=== PATIENT | female | born 1950 | race Caucasian/White ===

== ENCOUNTER → 2021-02-11 | Outpatient (CLI) | payer MEDICARE ==
[~2021-02-11] MED LIST: ASA81BEC PO; BENTYL 10 MG CA10 MG PO; CLARITIN10 M3 PO; FLONASE 0.05%50 MCG NASAL; LISINOPRIL2.5 MG PO; Lopressor PO; NITROSTAT0.4 M1 SUBLING; PROBIOTIC1 EAC7 PO; VITAMIN D325 MC1 PO
--- NOTE | 2021-02-11 14:36 | 2DMMODE ---
[place] [address] 2 D/M-MODE ECHOCARDIOGRAM Name: YARIEL JUAREZ Room: [facility]#: [id number] Admission: 02/11/21 Attend Phys: Francesco Villela, Discharge: Date of : 46 Date of Service: 02/11/21 1435 Report #: [id number] THIS REPORT FOR: cc: Mookie Marie Adam J DO Liston, Michael J. MD [facility] ~ APPROVED REPORT Study performed: 02/11/2021 10:46:06 EXAM: Comprehensive 2D, Doppler, and color-flow Echocardiogram Patient Location: Out-Patient BSA: 1.46 HR: 70 bpm BP: 116/71 mmHg Other Information Study Quality: Good Indications CAD 2D Dimensions IVSd: 8.50 (7-11mm) LVOT Diam: 18.51 (18-24mm) LVDd: 39.80 mm PWd: 8.16 (7-11mm) Ascending Ao: 28.41 (22-36mm) LVDs: 25.68 (25-40mm) Aortic Root: 26.89 mm Volumes Left Atrial Volume (Systole) LA ESV Index: 10.70 mL/m2 Aortic Valve AoV Peak Pineda.: 1.49 m/s AO Peak Gr.: 8.89 mmHg LVOT Max P.42 mmHg AO Mean Gr.: 4.50 mmHg LVOT Mean P.37 mmHg LVOT Max V: 1.16 m/s AO V2 VTI: 28.92 cm LVOT Mean V: 0.70 m/s RAMIREZ (VTI): 2.03 cm2 LVOT V1 VTI: 21.82 cm Mitral Valve E/A Ratio: 1.32 [place] [address] 2 D/M-MODE ECHOCARDIOGRAM Name: YARIEL JUAREZ Room: [facility]#: [id number] Admission: 02/11/21 Attend Phys: Francesco Villela, Discharge: Date of : 46 Date of Service: 02/11/21 1435 Report #: [id number] MV Decel. Time: 207.19 ms MV E Max Pineda.: 0.88 m/s MV PHT: 60.09 ms MVA (PHT): 3.66 cm2 TDI E/Lateral E': 8.80 E/Medial E': 7.33 Medial E' Pineda.: 0.12 m/s Lateral E' Pineda.: 0.10 m/s Pulmonary Valve PV Peak Pineda.: 1.07 m/s PV Peak Gr.: 4.55 mmHg Tricuspid Valve RAP Estimate: 5.00 mmHg TR Peak Gr.: 16.66 mmHg RVSP: 21.66 mmHg PA Pressure: 21.66 mmHg Left Ventricle The left ventricle is normal size. There is normal LV segmental wall motion. There is normal left ventricular wall thickness. Left ventricular systolic function is normal. LVEF is 60-65%. The left ventricular diastolic function is normal. Right Ventricle The right ventricle is normal size. The right ventricular systolic function is normal. Atria The left atrium size is normal. The right atrium size is normal. Aortic Valve Mild aortic valve sclerosis. No aortic regurgitation is present. There is no aortic valvular stenosis. Mitral Valve The mitral valve is normal in structure. Mild mitral regurgitation. No evidence of mitral valve stenosis. Tricuspid Valve The tricuspid valve is normal in structure. Mild tricuspid regurgitation. No pulmonary hypertension. Pulmonic Valve The pulmonary valve is normal [place] [address] 2 D/M-MODE ECHOCARDIOGRAM Name: YARIEL JUAREZ Briseida Room: [facility]#: [id number] Admission: 02/11/21 Attend Phys: Francesco Villela, Discharge: Date of : 46 Date of Service: 02/11/21 1435 Report #: [id number] regurgitation. Great Vessels The aortic root is normal in size. IVC is normal in size and collapses >50% with inspiration. Pericardium There is no pericardial effusion. <Conclusion> The left ventricle is normal size. There is normal left ventricular wall thickness. Left ventricular systolic function is normal. LVEF is 60-65%. The left ventricular diastolic function is normal. There is normal LV segmental wall motion. Mild aortic valve sclerosis. There is no aortic valvular stenosis. Mild mitral regurgitation. Mild tricuspid regurgitation. No pulmonary hypertension. IVC is normal in size and collapses >50% with inspiration. <ELECTRONICALLY SIGNED> By: Francesco Villela MD, FACC 02/11/21 1435 1435 1435 Francesco Villela MD, FACC /INF
--- NOTE | 2021-02-11 15:48 | CARDNUC ---
[place] [address] CARDIAC NUCLEAR IMAGING REPORT Name: YARIEL JUAREZ Room: [facility]#: [id number] Admission: 02/11/21 Attend Phys: Francesco Villela, Discharge: Date of : 46 Date of Service: 02/11/21 1548 Report #: [id number] THIS REPORT FOR: cc: Mookie Marie Adam J DO Liston, Michael J. MD [facility] ~ APPROVED REPORT Imaging Protocol: Stress Tc-99m/Rest Tc-99m 1 day Study performed: 02/11/2021 09:00:00 Indication: Dyspnea Patient Location: Out-Patient Stress Tech: Tanya Lambert Stress Nurse: Cassi Liriano RN Ht: 5 ft 3 in Wt: 103 lbs BSA: 1.46 m2 HR: 57 bpm BP: 116/71 mmHg BMI: 18.24 Medical History Medical History: Increased Dyspnea on exertion, nonrheumatic mitral valve regurgitation, CAD s/p CABG, CAD s/p NV, CAD s/p stent, HTN, Hyperlipidemia, past smoker. significant knee pain/bone on bone, rib pain with wires. Medications: ASA 81, LISINOPRIL, METOPROLOL, NTG Allergies: ATORVASTATION, LATEX, EZETIMIBE, MORPHINE, PITVASTATIN, PRAVASTATIN, ZOLPIDEIM. Cardiac Risk Factors: Age, Hyperlipidemia, HTN, Past Smoker, SOB, FHX of CAD, NONRHEUMATIC MITRAL VALVE REGURGITATION, HX NV, HX CABG, HX PCI. Previous Cardiac Procedures: CABG, Myocardial infarction, PCI, CAD Pretest Chest Pain Characteristics: No chest pain Exercise History: Indeterminate Physical Disabilities: DYSPNEA, FATIGUE, WEAKNESS, KNEE PAIN. Meds Held (24 hrs): Metoprolol, NTG. Resting Data Rest SPECT myocardial perfusion imaging was performed in supine position 30 minutes following the intravenous injection of 10.3 mCi of Tc-99m Sestamibi. Time of rest injection: 09:20 The images were gated to evaluate regional [place] [address] CARDIAC NUCLEAR IMAGING REPORT Name: YARIEL JUAREZ Room: [facility]#: [id number] Admission: 02/11/21 Attend Phys: Francesco Villela, Discharge: Date of : 46 Date of Service: 02/11/21 1548 Report #: [id number] left ventricular ejection fraction. Administration Route: IV Administration Site: Right AC Pharmacologic Stress Pharmacologic stress test was performed by injecting Regadenoson 0.4 mg IV push over 10-15 seconds immediately followed by the intravenous injection of 33.5 mCi of Tc-99m Sestamibi. Time of stress injection: 10:55 Administration Route: IV Administration Site: Right AC Heart Rate at time of stress injection: 109 bpm. Gated Stress SPECT was performed 40 minutes after stress injection. The images were gated to evaluate regional wall motion and calculate left ventricular ejection fraction. Stress Test Details Stress Test: Pharmacologic stress testing performed using 0.4 mg of regadenoson per 5 mL given IV over 10 seconds. Reason for pharmacologic stress test: DYSPNEA, FATIGUE, WEAKNESS, KNEE PAIN.. HR Max Heart Rate (APMHR): 148 bpm Resting HR: 57 bpm Target HR (85% APMHR): 125 bpm Max HR Achieved: 109 bpm % of APMHR: 73 Recovery HR: 98 bpm BP Resting BP: 116/71 mmHg Max BP: 137/76 mmHg Recovery BP: 116/77 mmHg ECG Resting ECG: Sinus Rhythm Stress ECG: Sinus Tachycardia ST Change: None Arrhythmia: None Recovery ECG: Sinus Rhythm Recovery ST Change: None Recovery Arrhythmia: None Clinical Reason for Termination: Completed protocol Stress Symptoms: DYSPNEA, LIGHTHEADEDNESS, FULLNESS IN THROAT, FATIGUE, ACHE ACROSS CHEST 4/10, DIZZINESS, [place] [address] CARDIAC NUCLEAR IMAGING REPORT Name: YARIEL JUAREZ [id number] Admission: 02/11/21 Attend Phys: Francesco Villela, Discharge: Date of : 46 Date of Service: 02/11/21 1548 Report #: [id number] 10/09. Exercise duration: 00 min 00 sec Exercise capacity: 1.00 METs The patient reported mild chest pressure and ache with Lexiscan infusion. Nurse Comments A 70 YEAR OLD FEMALE PRESENTED FOR A SITTING LEXISCAN. TEST WELL TOLERATED. RECOVERY UNREMARKABLE. PATIENT WAS STABLE AND STATED SHE FELT GOOD WHEN ESCORTED VIA WHEELCHAIR TO ECHO AND NUCLEAR MEDICINE FOR IMAGING. Stress ECG Conclusion The baseline twelve-lead EKG shows sinus rhythm without significant ST segment abnormality. EKGs obtained during and post Lexiscan infusion show sinus rhythm and sinus tachycardia with no significant ST segment changes when compared to baseline. There were no stress-induced arrhythmias. Study Quality Study: Good Artifact: No artifact Study Data At rest, the left ventricular ejection fraction was 66%.. Post stress, the left ventricular ejection was 62%.. TID = 1.00. Perfusion Perfusion images obtained at rest and post Lexiscan stress showed uniform uptake of the radioisotope throughout the myocardium. There were no defects to see just infarct or ischemia. Wall Motion Global LV systolic function is normal. There is a septal wall motion abnormality consistent with prior bypass procedure. Nuclear Conclusion ECG Findings: negative for ischemia Clinical Findings: equivocal Nuclear Findings: negative for ischemia Exercise Capacity: not assessed Left Ventricular Function: Preserved Perfusion images show no defect to suggest infarct or ischemia. Left ventricular systolic function appears preserved on gated studies. This is [place] [address] CARDIAC NUCLEAR IMAGING REPORT Name: YARIEL JUAREZ Room: [facility]#: [id number] Admission: 02/11/21 Attend Phys: Francesco Villela, Discharge: Date of : 46 Date of Service: 02/11/21 1548 Report #: [id number] <Conclusion> The baseline twelve-lead EKG shows sinus rhythm without significant ST segment abnormality. EKGs obtained during and post Lexiscan infusion show sinus rhythm and sinus tachycardia with no significant ST segment changes when compared to baseline. There were no stress-induced arrhythmias. <ELECTRONICALLY SIGNED> By: Francesco Villela MD, FACC 02/11/21 1548 1548 1548 Francesco Villela MD, FACC /INF
== END ==
LOC: M.CRD 01-31 11:24 → M.NUC 08:47 → M.CRD 09:00 → M.NUC 09:00 → M.CRD 11:00
PROVIDERS: ATTEND Internal Medicine Cardiovascular Disease
DX: I08.8 Other rheumatic multiple valve diseases (principal); R00.0 Tachycardia, unspecified; I10 Essential (primary) hypertension; I25.10 Atherosclerotic heart disease of native coronary artery without angina pectoris; E78.2 Mixed hyperlipidemia